=== PATIENT | male | born 1995 | race Caucasian/White ===

== ENCOUNTER 2017-03-18 15:34 | Emergency (ER) | payer SELFPAY ==
[~2017-03-18] VITALS: Ht 170.2 cm; Wt 60.3 kg
[2017-03-18 15:37] VITALS: BP 139/88; PULSE 106; RESP 16; TEMP 98.4; O2SAT 99
[2017-03-18 15:43] VITALS: BP 138/76; PULSE 114; RESP 18; O2SAT 96
[2017-03-18 16:03] VITALS: O2SAT 98
[2017-03-18] MEDS ORDERED: SODIUM CHLOR 0.9% 1000 ML INJ 1,000 ML IV SCH (16:04)
[2017-03-18] MEDS ORDERED: MORPHINE SULFATE 4 MG/ML INJ IV PUSH ONE (16:15)
[2017-03-18] MEDS ORDERED: ONDANSETRON HCL 4 MG/2 ML VIAL IVP ONE (16:15)
[2017-03-18] MEDS ORDERED: FAMOTIDINE 20 MG/2 ML VIAL IV PUSH ONE (16:15)
[2017-03-18] MEDS ORDERED: SODIUM CHLORIDE 0.9% FLUSH 10 ML FLUSH IV FLUSH PRN (16:15)
[2017-03-18 16:17] LABS: AUTOMATED NEUTROPHIL # 7.7 TH/MM3 (1.8-7.7); BASOPHIL # 0.2 TH/MM3 (0-0.2); BASOPHIL % 1.7 % (0.0-2.0); EOSINOPHIL # 0.3 TH/MM3 (0-0.4); EOSINOPHIL % 2.6 % (0.0-4.0); HEMATOCRIT 48.8 % (39.0-51.0); HEMO FLAGS DIFF FINAL; LYMPH % 19.7 % (9.0-44.0); LYMPHOCYTE # 2.1 TH/MM3 (1.0-4.8); MEAN CELL VOLUME 86.2 FL (80.0-100.0); MEAN CORPUSCULAR HGB CONC 33.6 % (32.0-36.0); PLATELET COUNT 202 TH/MM3 (150-450); RED BLOOD COUNT 5.66 MIL/MM3 (4.50-5.90); RED CELL DISTRIBUTION WIDTH 12.3 % (11.6-17.2); WHITE BLOOD COUNT 10.8 TH/MM3 (4.0-11.0)
--- NOTE | 2017-03-18 16:29 | PD ---
HPI Chief Complaint: GI Complaint Time Seen by Provider: 15:56 Travel History International Travel<30 days: No Contact w/Intl Traveler<30days: No Traveled to known affect area: No History of Present Illness HPI Patient is a 21 year old male who comes in complaining of abdominal pain and bloody stool. He says this morning he had a bowel movement and noticed some blood when he wiped himself and some blood in the toilet. He says the pain in his abdomen started shortly after that. He says the pain is in the middle of his abdomen. He denies nausea or vomiting. He denies fever or chills. He has not been on antibiotics recently. He denies any recent travel. [facility] Past Medical History Medical History: Denies Significant Hx Hx Anticoagulant Therapy: No Diabetes: No Diminished Hearing: No Immunizations Current: Yes (UTD) Seizures: Yes (FEBRILE) Tetanus Vaccination: < 5 Years Influenza Vaccination: No Past Surgical History Other Surgery: Yes (SINUS) Social History Alcohol Use: Yes (RARE) Tobacco Use: No Substance Use: No Allergies-Medications (Allergen,Severity, Reaction): Coded Allergies: No Known Allergies (Verified , 03/18/17) Reported Meds & Prescriptions Reported Meds & Active Scripts Active No Active Prescriptions or Reported Medications Review of Systems Except as stated in HPI: all other systems reviewed are Neg General / Constitutional: No: Fever, Chills HENT: No: Headaches, Lightheadedness Cardiovascular: No: Chest Pain or Discomfort Respiratory: No: Shortness of Breath Gastrointestinal: Positive: Abdominal Pain, Hematochezia, No: Nausea, Vomiting , Diarrhea, Constipation Genitourinary: No: Urgency, Frequency, Dysuria Musculoskeletal: No: Edema Skin: No Rash, No Change in Pigmentation Neurologic: No: Weakness, Dizziness Physical Exam Narrative GENERAL: Awake and alert, in no acute distress. SKIN: Focused skin assessment warm/dry. HEAD: Atraumatic. Normocephalic. EYES: Pupils equal and round. No scleral icterus. No injection or drainage. ENT: Mucous membranes pink and moist. NECK: Trachea midline. No JVD. CARDIOVASCULAR: Regular rate and rhythm. No murmur appreciated. RESPIRATORY: No accessory muscle use. Clear to auscultation. Breath sounds equal bilaterally. GASTROINTESTINAL: Abdomen soft, nondistended. Tender to palpation of the epigastric and periumbilical area. No guarding, no rebound. RECTAL: Performed in the presence of a nurse. No hemorrhoid or fissure. Brown stool, no occult blood. MUSCULOSKELETAL: No obvious deformities. No clubbing. No cyanosis. No edema. NEUROLOGICAL: Awake and alert. No obvious cranial nerve deficits. Motor grossly within normal limits. Normal speech. PSYCHIATRIC: Appropriate mood and affect; insight and judgment normal. Data Data Last Documented VS Vital Signs Date Time Temp Pulse Resp B/P Pulse Ox O2 Delivery O2 Flow Rate FiO2 03/18/17 17:34 100 18 124/74 98 Room Air 03/18/17 15:37 98.4 Orders Basic Metabolic Panel (Bmp) (03/18/17 16:04) Complete Blood Count With Diff (03/18/17 16:04) Lipase (03/18/17 16:04) Lactic Acid (03/18/17 16:04) Prothrombin Time / Inr (Pt) (03/18/17 16:04) Act Partial Throm Time (Ptt) (03/18/17 16:04) Urinalysis - C+S If Indicated (03/18/17 16:04) Ua Includes Microscopic (03/18/17 16:04) Ct Abd/Pel W Iv Contrast(Rout) (03/18/17 16:04) Iv Access Insert/Monitor (03/18/17 16:04) Ecg Monitoring (03/18/17 16:04) Oximetry (03/18/17 16:04) Morphine Inj (Morphine Inj) (03/18/17 16:15) Ondansetron Inj (Zofran Inj) (03/18/17 16:15) Sodium Chlor 0.9% 1000 Ml Inj (Ns 1000 M (03/18/17 16:04) Sodium Chloride 0.9% Flush (Ns Flush) (03/18/17 16:15) Famotidine Inj (Pepcid Inj) (03/18/17 16:15) Hepatic Functional Panel (03/18/17 16:04) Iohexol 350 Inj (Omnipaque 350 Inj) (03/18/17 17:07) Labs Laboratory Tests Test 03/18/17 03/18/17 03/18/17 16:00 16:10 17:30 White Blood Count 10.8 TH/MM3 Red Blood Count 5.66 MIL/MM3 Hemoglobin 16.4 GM/DL Hematocrit 48.8 % Mean Corpuscular Volume 86.2 FL Mean Corpuscular Hemoglobin 29.0 PG Mean Corpuscular Hemoglobin 33.6 % Concent Red Cell Distribution Width 12.3 % Platelet Count 202 TH/MM3 Mean Platelet Volume 8.8 FL Neutrophils (%) (Auto) 71.0 % Lymphocytes (%) (Auto) 19.7 % Monocytes (%) (Auto) 5.0 % Eosinophils (%) (Auto) 2.6 % Basophils (%) (Auto) 1.7 % Neutrophils # (Auto) 7.7 TH/MM3 Lymphocytes # (Auto) 2.1 TH/MM3 Monocytes # (Auto) 0.5 TH/MM3 Eosinophils # (Auto) 0.3 TH/MM3 Basophils # (Auto) 0.2 TH/MM3 CBC Comment DIFF FINAL Differential Comment Prothrombin Time 11.0 SEC Prothromb Time International 1.0 RATIO Ratio Activated Partial 25.0 SEC Thromboplast Time Sodium Level 144 MEQ/L Potassium Level 4.0 MEQ/L Chloride Level 106 MEQ/L Carbon Dioxide Level 28.7 MEQ/L Anion Gap 9 MEQ/L Blood Urea Nitrogen 13 MG/DL Creatinine 0.95 MG/DL Estimat Glomerular Filtration 98 ML/MIN Rate Random Glucose 111 MG/DL Calcium Level 9.1 MG/DL Total Bilirubin 0.3 MG/DL Direct Bilirubin 0.1 MG/DL Indirect Bilirubin 0.2 MG/DL Aspartate Amino Transf 23 U/L (AST/SGOT) Alanine Aminotransferase 34 U/L (ALT/SGPT) Alkaline Phosphatase 58 U/L Total Protein 7.8 GM/DL Albumin 4.1 GM/DL Lipase 172 U/L Lactic Acid Level 1.1 mmol/L Urine Collection Type CLEAN CATCH Urine Color YELLOW Urine Turbidity CLEAR Urine pH 6.0 Urine Specific [place] GREATER THAN 1.035 Urine Protein NEG mg/dL Urine Glucose (UA) NEG mg/dL Urine Ketones NEG mg/dL Urine Occult Blood TRACE Urine Nitrite NEG Urine Bilirubin NEG Urine Leukocyte Esterase NEG Urine RBC 0-3 /hpf Microscopic Urinalysis Comment CULT NOT INDICATED MDM Medical Decision Making Medical Screen Exam Complete: Yes Emergency Medical Condition: Yes Medical Record Reviewed: Yes Differential Diagnosis Colitis versus diverticulitis versus appendicitis versus peptic ulcer disease Narrative Course Patient is a 21-year-old male who comes in complaining of abdominal pain and blood in his stool. Exam shows some mild epigastric tenderness. Stool is negative for occult blood. IV established, labs sent. Labs show no acute abnormalities. Hemoglobin is 16. CT abdomen and pelvis is performed shows no acute abnormalities. Patient given IV fluids, morphine, Zofran. He reports feeling better. I discussed with him the results. I advised needs to follow-up with gastroenterology for further testing. He is not currently bleeding and has no signs of anemia, therefore I feel he is safe for discharge at this time. He is advised to return at any time for any worsening symptoms. Mandatory referral placed for gastroenterology. [facility] Point of Care Internal Pos. & Neg. Controls: Passed Fecal Specimen Occult Blood: Negative Diagnosis Primary Impression: Abdominal pain Qualified Code: R10.13 - Epigastric pain Additional Impression: Blood in stool Patient Instructions: Abdominal Pain (ED), General Instructions Additional Instructions: Drink plenty of fluids. Eat a bland diet. Follow up with Gastroenterology. Return to the ED as needed for any worsening symptoms. Scripts No Active Prescriptions or Reported Meds Disposition: 01 DISCHARGE HOME Condition: Stable Catherine May MD Mar 18, 2017 16:29
[2017-03-18 16:30] LABS: BICARBONATE 28.7 MEQ/L (21.0-32.0)
[2017-03-18 16:34] LABS: INDIRECT BILIRUBIN 0.2 MG/DL (0.0-0.8); TOTAL BILIRUBIN ADULT 0.3 MG/DL (0.2-1.0)
[2017-03-18] MEDS ORDERED: IOHEXOL 350 MG/ML 10 ML VIAL (for RAD DIAG) IV ONE (17:07)
[2017-03-18 17:34] VITALS: BP 124/74; PULSE 100; RESP 18; O2SAT 98
--- NOTE | 2017-03-18 17:36 | RADHPO ---
EXAM DATE/TIME: 03/18/2017 16:56 [place] COMPARISON: No previous studies available for comparison. INDICATIONS : Bloody stool with lower abdominal pain. IV CONTRAST: 90 cc Omnipaque 350 (iohexol) IV ORAL CONTRAST: No oral contrast ingested. RADIATION DOSE: 5.93 CTDIvol (mGy) MEDICAL HISTORY : None SURGICAL HISTORY : None. ENCOUNTER: Initial ACUITY: 1 day PAIN SCALE: 3/10 LOCATION: lower quadrant TECHNIQUE: Volumetric scanning of the abdomen and pelvis was performed. Using automated exposure control and ad justment of the mA and/or kV according to patient size, radiation dose was kept as low as reasonably achievable to obtain optimal diagnostic quality images. FINDINGS: LOWER LUNGS: The visualized lower lungs are clear. LIVER: Homogeneous density without lesion. There is no dilation of the biliary tree. No calcified gallston es. SPLEEN: Normal size without lesion. PANCREAS: Within normal limits. KIDNEYS: Normal in size and shape. There is no mass, stone or hydronephrosis. ADRENAL GLANDS: Within normal limits. VASCULAR: There is no aortic aneurysm. BOWEL/MESENTERY: The stomach, small bowel, and colon demonstrate no acute abnormality. There is no free intraperitone al air or fluid. ABDOMINAL WALL: Within normal limits. RETROPERITONEUM: There is no lymphadenopathy. BLADDER: No wall thickening or mass. REPRODUCTIVE: Within normal limits. INGUINAL: There is no lymphadenopathy or hernia. MUSCULOSKELETAL: Within normal limits for patient age. CONCLUSION: Normal examination. Nikhil Kidd MD on March 18, 2017 at 17:32 Board Certified Radiologist. This report was verified electronically.
[2017-03-18 17:43] LABS: BLOOD, URINE TRACE (NEG); GLUCOSE,URINE NEG (NEG); KETONE, URINE NEG (NEG); NITRITE,URINE NEG (NEG)
[2017-03-18 17:47] LABS: COMMENT (UR) CULT NOT INDICATED; CULTURE IF INDICATED CULT NOT INDICATED; METHOD OF COLLECTION CLEAN CATCH; RBC, URINE 0-3 /hpf (0-3); URINE COLOR YELLOW (YELLW/STRAW)
[2017-03-18 18:39] VITALS: BP 106/78
== END 2017-03-18 18:39 | disposition home or self-care (01) ==
LOC: PHED 15:34
DX: R10.13 Epigastric pain (principal); K92.1 Melena
CPT/HCPCS: 74177; 80048; 80076; 81001; 83605; 83690; 85025; 85610; 85730; 96361; 96374; 96375; 99285; J2270; J2405; J7030; Q9967

== ENCOUNTER 2017-11-18 09:38 | Emergency (ER) | payer OTHER ==
[~2017-11-18] VITALS: Ht 172.7 cm; Wt 60.2 kg
[2017-11-18 09:41] VITALS: BP 132/87; PULSE 81; RESP 16; TEMP 98.3; O2SAT 99
[2017-11-18] MEDS ORDERED: CLINDAMYCIN 150 MG CAP PO ONE (10:00)
[2017-11-18] MEDS ORDERED: DEXAMETHASONE SOD PHOS 20 MG/5 ML VIAL IM ONE (10:00)
--- NOTE | 2017-11-18 10:03 | PD ---
HPI Chief Complaint: Oral / Dental Pain or Problem Time Seen by Provider: 09:51 Travel History International Travel<30 days: No Contact w/Intl Traveler<30days: No Traveled to known affect area: No History of Present Illness HPI Patient comes to emergency department complaining of possible dental abscess that began approximately a week ago. Patient reports he is trying to contact the dentist however started having some swelling that he noticed yesterday. Patient reports he has been trying to brush his teeth and use mouthwash for symptomatic relief. Patient reports taking an Advil last night seemed to help some. Patient reports he is feeling a slight pressure over his left upper maxilla. Patient denies any making symptoms worse. Denies any fevers or radiation of pain. Denies difficulty swallowing, chest pain, neck pain, or fevers. Patient reports this tooth broke a long time ago and has not had it repaired. PFSH Past Medical History Hx Anticoagulant Therapy: No Diabetes: No Diminished Hearing: No Immunizations Current: Yes (UTD) Seizures: Yes (FEBRILE) Tetanus Vaccination: < 5 Years Influenza Vaccination: No Past Surgical History Other Surgery: Yes (SINUS) Social History Alcohol Use: Yes (RARE) Tobacco Use: No Substance Use: No Allergies-Medications (Allergen,Severity, Reaction): Coded Allergies: No Known Allergies (Verified Allergy, Unknown, 11/18/17) Reported Meds & Prescriptions Reported Meds & Active Scripts Active Naprosyn (Naproxen) 500 Mg Tab 500 Mg PO Q12HR PRN Clindamycin (Clindamycin HCl) 150 Mg Cap 2 Cap PO Q6H 10 Days Review of Systems Except as stated in HPI: all other systems reviewed are Neg Physical Exam Narrative GENERAL: Well-developed, well nourished, in no acute distress, and non-ill appearing. SKIN: Focused skin assessment warm and dry. HEAD: Atraumatic. Normocephalic. EYES: Pupils equal and round. EOMI. No scleral icterus. No injection or drainage. ENT: No nasal bleeding or discharge. Mucous membranes pink and moist. Poor dentition with no visible or palpable abscess. Mild soft tissue swelling noted of the left cheek. Floor the mouth, submandibular, and submental are all soft palpation. No cervical lymphadenopathy. Posterior pharynx nonerythematous without exudate. Uvula is midline. Patient is swallowing own saliva and speaking in full sentences without difficulty. NECK: Trachea midline. Supple. No nuclear rigidity. RESPIRATORY: No accessory muscle use. No respiratory distress. MUSCULOSKELETAL: No obvious deformities. No clubbing. No cyanosis. No edema. Full range of motion. NEUROLOGICAL: Awake and alert. No obvious cranial nerve deficits. Motor grossly within normal limits. Normal speech. PSYCHIATRIC: Appropriate mood and affect; insight and judgment normal. Data Data Last Documented VS Vital Signs Date Time Temp Pulse Resp B/P (MAP) Pulse Ox O2 Delivery O2 Flow Rate FiO2 11/18/17 09:41 98.3 81 16 132/87 (102) 99 Orders Orders Dexamethasone Inj (Decadron Inj) (11/18/17 10:00) Clindamycin (Cleocin) (11/18/17 10:00) Clindamycin Inj (Cleocin Inj) (11/18/17 10:15) Ed Discharge Order (11/18/17 10:16) Clindamycin Inj (Cleocin Inj) (11/18/17 10:30) [facility] Medical Decision Making Medical Screen Exam Complete: Yes Emergency Medical Condition: Yes Differential Diagnosis Dental abscess, dental infection, dental areas, dentalgia Narrative Course The patient presented with dental pain. There is no fever. There is no significant facial swelling or evidence of cellulitis. There is poor dentition but no evidence of drainable abscess at this time. There is no evidence of significant deep or invading abscess at this time. The patient will be placed on antibiotics and pain medication. The patient was instructed to follow up with a dentist. The patient was given the dental referral sheet. Warnings were discussed with the patient regarding worsening of infection. The patient is to return if pain worsens, develops progressive swelling or facial redness or fever. The patient agrees with plan. Patient in no obvious distress upon re-evaluation. Patient was asked if they wanted to speak to my attending, which the patient did not wish to do at this time. Any questions/concerns in reference to patient diagnosis/condition discussed and clarified prior to patient's discharge. Reinforced sheer importance of close follow up with patient's primary physician or primary care clinic and/or dentist. Instructed patient to return to ED immediately, if symptoms return/worsen. Patient showed understanding of above instructions. Further instructions and recommendations were detailed in discharge paperwork. Patient ambulated without difficulty out of ED at discharge. Diagnosis Primary Impression: Dental infection Referrals: [facility] Patient Instructions: Dental Abscess (GEN), Dental Caries (ED), General Instructions Additional Instructions: Follow-up with your primary care physician and dentist as soon as possible. Rinse mouth with warm salt water gargles. Take all medication as prescribed. Return to the emergency department if symptoms get worse. Med/Other Pt SpecificInfo: Prescription(s) given Scripts Naproxen (Naprosyn) 500 Mg Tab 500 MG PO Q12HR Y for PAIN SCALE 1 TO 10, #14 TAB 0 Refills Prov: Priti Horton MD 11/18/17 Clindamycin (Clindamycin) 150 Mg Cap 2 CAP PO Q6H for Infection for 10 Days, #80 CAP 0 Refills Prov: Priti Horton MD 11/18/17 Disposition: 01 DISCHARGE HOME Condition: Stable Juan Hutchins Nov 18, 2017 10:03
[2017-11-18] MEDS ORDERED: CLIN150C14 PO (10:04)
[2017-11-18] MEDS ORDERED: NAPR500 PO (10:04)
[2017-11-18] MEDS ORDERED: CLINDAMYCIN PHOS 300 MG/2 ML VIAL IM ONE (10:15)
[2017-11-18] MEDS ORDERED: CLINDAMYCIN PHOS 600 MG/4 ML VIAL IM ONE (10:30)
== END 2017-11-18 10:58 | disposition home or self-care (01) ==
LOC: PHEFT 09:38
DX: K04.7 Periapical abscess without sinus (principal)
CPT/HCPCS: 96372; 99283; J1100

== ENCOUNTER 2018-09-28 23:24 | Observation (INO) ==
[2018-09-28] MEDS ORDERED: Sod Chloride 0.9% Inj 1,000 ML IV.SIG ONE (23:46)
--- NOTE | 2018-09-28 23:52 | ED ---
HPI General Chief Complaint: Seizure Stated Complaint: Poss Seizure Time Seen by Provider: 09/28/18 23:33 Source: patient and family Mode of arrival: ambulatory Limitations: no limitations History of Present Illness HPI Narrative: Patient is a 23-year-old male who presents to the emergency room for evaluation of seizure. Patient's mother reports that patient was sitting in bed today when all of a sudden he had a seizure. Reports that the left side of his body was flailing, the seizure lasted for only a few minutes and resolved on its own. Reports that patient was responsive after his seizure episode but was confused. Patient does have history of seizures in the past, reports that he has history of [place] seizures when he was a little boy. Mom reports the patient was on seizure medications until the age of 53 years old and then stopped as he did not have any seizures. Patient reports that for the past 2-3 years, he has been having seizures on and off. Patient's last seizure was 2 weeks ago. Patient has not been on any seizure medications as he did not tell his mother he was having seizures. Patient reports that he does not have a primary care doctor, reports that he does not see a neurologist. 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 MD complaint: Reports seizure Related Data Home Medications Medication Instructions Recorded Confirmed No Known Home Medications 09/28/18 09/28/18 Allergies Allergy/AdvReac Type Severity Reaction Status Date / Time No Known Allergies Allergy Verified 09/28/18 23:48 Review of Systems ROS: all other systems reviewed are negative [facility] Medical History Medical History History of Asperger's syndrome (Acute) History of seizures (Acute) Surgical History Surgical History History of placement of ear tubes (Acute) Social History Social History Substance History: No History of Abuse Smoking Status: Never smoker How Often Do You Have a Drink Containing Alcohol: Never Recent Travel in [place] within the Last 8 Weeks: No Recent Out of Country Travel within the Last 8 Weeks: No Immunization History Tetanus Immunization: >5 Years Exam Narrative Exam Narrative: GENERAL: NAD SKIN: Focused skin assessment warm/dry. HEAD: Atraumatic. Normocephalic. EYES: Pupils equal and round. No scleral icterus. No injection or drainage. ENT: No nasal bleeding or discharge. Mucous membranes pink and moist. NECK: Trachea midline. No JVD. CARDIOVASCULAR: Regular rate and rhythm. No murmur appreciated. RESPIRATORY: No accessory muscle use. Clear to auscultation. Breath sounds equal bilaterally. GASTROINTESTINAL: Abdomen soft, non-tender, nondistended. Hepatic and splenic margins not palpable. MUSCULOSKELETAL: No obvious deformities. No clubbing. No cyanosis. No edema. NEUROLOGICAL: Awake and alert. No obvious cranial nerve deficits. Motor grossly within normal limits. Normal speech. PSYCHIATRIC: Appropriate mood and affect; insight and judgment normal. Course Reevaluation(s) Reevaluation #1: was called to bedside as patient had a seizure. 2 mg of ativan was ordered for patient, seizure lasted for about 30 seconds and resolved on it's own. he was not postictal after he had his seizure Time: 00:46 Reevaluation #2: was called back into room as patient had another seizure episode, when I walked into the room, he had resolution of his symptoms and was conversive Time: 01:14 Initial Documented Vital Signs Temperature 99.0 F 09/28/18 23:30 Pulse Rate 91 H 09/28/18 23:30 Respiratory Rate 18 09/28/18 23:30 Blood Pressure 149/86 H 09/28/18 23:30 Pulse Oximetry 98 09/28/18 23:30 Last Documented Vital Signs Temperature 99.0 F 09/28/18 23:30 Pulse Rate 91 H 09/28/18 23:30 Respiratory Rate 18 09/28/18 23:30 Blood Pressure 149/86 H 09/28/18 23:30 Pulse Oximetry 98 09/28/18 23:30 Critical Care Time Critical Care Time: Yes Total Critical Care Time: 30 Attestation: Aggregate critical care time was 30 minutes. Time to perform other separately billable procedures was not included in the critical care time. My time did not include minutes spent treating any other patients simultaneously or on activities that did not directly contribute to the patient's treatment. The services I provided to this patient were to treat and/or prevent clinically significant deterioration that could result in: , decompensation, deterioration I provided critical care services requiring my management, as noted below: Chart data review, documentation time, medication orders and management, vital sign assessments/reviewing monitor data, ordering and reviewing lab tests, ordering and interpreting/reviewing x-rays and diagnostic studies, care of the patient and discussion of the patient with the admitting physicians. Medical Decision Making MDM Narrative Medical decision making narrative: During the course of the patients emergency department visit, the patients history, examination, and differential diagnosis were reviewed with the patient. The patient was placed on a cardiac rehab nurse with oximetry and frequent blood pressure monitoring. The patient had an IV access obtained and blood work sent for analysis. The patient was initially provided Keppra 500mg Case reviewed with Dr. Sanders, requests that patient be admitted to the hospital, request an MRI with and without contrast in the morning. Request EEG. Request an FRANSISCO as well as an RPR and a urine drug screen to be obtained. Will start patient on Keppra 500 mg Radiology studies were reviewed and remarkable for: Ct of head: neg noncontrast ct case reviewed with Dr. Jay who accepts pt to service Medical Screen Exam Complete: Yes Emergency Medical Condition: Yes Lab Data Result diagrams: 09/29/18 00:20 09/29/18 00:20 Lab Results 09/29/18 09/29/18 09/29/18 Range/Units 00:15 00:20 00:20 CBC w Diff Auto diff final WBC 8.8 (4.0-11.0) th/mm3 RBC 5.22 (4.50-5.90) mil/mm3 Hgb 15.3 (13.0-17.0) gm/dL Hct 45.6 (39.0-51.0) % MCV 87.4 (80.0-100.0) fL MCH 29.4 (27.0-34.0) pg MCHC 33.6 (32.0-36.0) % RDW 11.9 (11.6-17.2) % Plt Count 209 (150-450) th/mm3 MPV 8.5 (7.0-11.0) fL Neut % (Auto) 67.5 (16.0-70.0) % Lymph % (Auto) 23.6 (9.0-44.0) % [place] % (Auto) 7.3 (0.0-8.0) % Eos % (Auto) 1.0 (0.0-4.0) % Baso % (Auto) 0.6 (0.0-2.0) % Neut # (Auto) 5.9 (1.8-7.7) th/mm3 Lymph # (Auto) 2.1 (1.0-4.8) th/mm3 [place] # (Auto) 0.6 (0.0-0.9) th/mm3 Eos # (Auto) 0.1 (0.0-0.4) th/mm3 Baso # (Auto) 0.1 (0.0-0.2) th/mm3 WBC Differential . Differential Comment . Sodium 138 (136-145) meq/L Potassium 3.6 (3.5-5.1) meq/L Chloride 103 (98-107) meq/L Carbon Dioxide 26.3 (21.0-32.0) meq/L Anion Gap 9 (5-15) meq/L BUN 13 (7-18) mg/dL Creatinine 0.95 (0.60-1.30) mg/dL Estimated GFR Greater than 89 (>89) mL/min Random Glucose 95 (74-106) mg/dL Calcium 8.6 (8.5-10.1) mg/dL Magnesium 2.3 (1.5-2.5) mg/dL TSH 1.940 (0.358-3.740) uIU/mL Urine Opiates Screen Neg (Neg) Ur Barbiturates Screen Neg (Neg) Ur Amphetamines Screen Neg (Neg) U Benzodiazepines Scrn Neg (Neg) Urine Cocaine Screen Neg (Neg) U Cannabinoids Screen Neg (Neg) Serum Alcohol Less than 3 (0-5) mg/dL Imaging Data Radiologist's impression: Head CT 09/28/18 23:46 CONCLUSION: Negative noncontrast head CT. . Discharge Plan Discharge Disposition Patient Disposition: ED Admit(ED Internal Use Only) Discharge Condition Condition: Stable Discharge Order Discharge Orders: ED Use Only Admit Order (Routine); Ordered 09/29/18 Ordered By: Argelia Robbins Discharge Details Diagnosis: Seizure disorder Physicians Team ED Provider: Argelia Robbins Primary Care Provider: Primary Care Physici,Lo Rxs /Orders / Referrals /Forms Prescriptions: No Action No Known Home Medications RF: 0 Status ED Status: Pending Admission
--- NOTE | 2018-09-29 00:12 | CT ---
EXAM DATE: 09/29/2018 12:08 AM EST AGE/SEX: 23 years / Male INDICATIONS: Seizure. CLINICAL DATA: This is the patient's initial encounter. Patient reports that signs and symptoms have been present for 1 day and indicates a pain score of 0/10. MEDICAL/SURGICAL HISTORY: Seizures. None. RADIATION DOSE: 51.51 CTDI (mGy) COMPARISON: No prior exams available for comparison. TECHNIQUE: CT of the head without contrast. Using automated exposure control and adjustment of the mA and/or kV according to patient size, radiation dose was kept as low as reasonably achievable to ob tain optimal diagnostic quality images. DICOM format image data is available electronically for revi ew and comparison. FINDINGS: Cerebrum: The ventricles are normal for age. No evidence of midline shift, mass lesion, hemorrhage or acute infarction. No extraaxial fluid collections are seen. Posterior Fossa: The cerebellum and brainstem are intact. The 4th ventricle is midline. The cerebe llopontine angle is unremarkable. Extracranial: The visualized portion of the orbits is intact. Skull: The calvaria is intact. No evidence of skull fracture. CONCLUSION: Negative noncontrast head CT. . Electronically signed by: Nikhil Kidd MD Board Certified Radiologist 09/29/2018 12:11 AM EST
[2018-09-29] MEDS ORDERED: levETIRAcetam 500 MG Tablet PO ONE (00:17)
[2018-09-29 00:35] LABS: Baso # (Auto) 0.1 th/mm3 (0.0-0.2); Baso % (Auto) 0.6 % (0.0-2.0); Eos # (Auto) 0.1 th/mm3 (0.0-0.4); Hematocrit 45.6 % (39.0-51.0); Hemoglobin 15.3 gm/dL (13.0-17.0); Lymph # (Auto) 2.1 th/mm3 (1.0-4.8); Lymph % (Auto) 23.6 % (9.0-44.0); Mean Corpuscular HGB Conc 33.6 % (32.0-36.0); Mean Corpuscular Hemoglobin 29.4 pg (27.0-34.0); Mean Corpuscular Volume 87.4 fL (80.0-100.0); Mean Platelet Volume 8.5 fL (7.0-11.0); Mono # (Auto) 0.6 th/mm3 (0.0-0.9); Mono % (Auto) 7.3 % (0.0-8.0); Neut # (Auto) 5.9 th/mm3 (1.8-7.7); Neut % (Auto) 67.5 % (16.0-70.0); Platelet Count 209 th/mm3 (150-450); Red Blood Count 5.22 mil/mm3 (4.50-5.90); Red Cell Distribution Width 11.9 % (11.6-17.2); White Blood Count 8.8 th/mm3 (4.0-11.0)
[2018-09-29 00:42] LABS: Amphetamine Screen,Urine Neg (Neg); Barbiturate Screen,Urine Neg (Neg)
[2018-09-29 00:43] LABS: Cannabinoid Screen,Urine Neg (Neg); Cocaine Screen,Urine Neg (Neg)
[2018-09-29 00:46] LABS: Chloride 103 meq/L (98-107); Potassium 3.6 meq/L (3.5-5.1); Sodium 138 meq/L (136-145)
[2018-09-29 00:47] LABS: Opiate Screen,Urine Neg (Neg)
[2018-09-29 00:48] LABS: Calcium 8.6 mg/dL (8.5-10.1)
[2018-09-29 00:49] LABS: Anion Gap 9 meq/L (5-15); Blood Urea Nitrogen 13 mg/dL (7-18); Carbon Dioxide 26.3 meq/L (21.0-32.0); Glucose,Random 95 mg/dL (74-106); Magnesium 2.3 mg/dL (1.5-2.5)
[2018-09-29 00:52] LABS: Glomerular Filtration Rate Greater Than 89 mL/min (>89)
[2018-09-29] MEDS ORDERED: Bisacodyl 10 MG Supp RECTAL PRN (01:13)
[2018-09-29] MEDS ORDERED: Acetaminophen 325 MG Tablet PO PRN (01:13)
[2018-09-29] MEDS ORDERED: Gadobutrol PF 2 MMOL/2 ML Vial (for RAD) IV.SIG ONE (01:17)
--- NOTE | 2018-09-29 02:10 | MR ---
EXAM DATE: 09/29/2018 2:06 AM EST AGE/SEX: 23 years / Male INDICATIONS: Seizures. CLINICAL DATA: This is the patient's subsequent encounter. Patient reports that signs and symptoms h ave been present for 1 day and indicates a pain score of 0/10. MEDICAL/SURGICAL HISTORY: Seizures. . Eustachian tubes. COMPARISON: No prior exams available for comparison. TECHNIQUE: Multiplanar, multisequence examination of the brain was performed without and with 6 ml Ga davist (gadobutrol) contrast as a single exam dose. FINDINGS: Cerebrum: The ventricles are normal for age. No evidence of midline shift, mass lesion, hemorrhage or acute infarction. No extraaxial fluid collections are seen. The pituitary gland and suprasellar cistern are normal in configuration. White Matter: No significant signal abnormalities are seen in the white matter. Posterior Fossa: The cerebellum and brainstem are intact. The 4th ventricle is midline. The cerebel lopontine angle is unremarkable. The cerebellar tonsils are normal in position. Diffusion Imaging: No focal areas of restricted diffusion are seen. No evidence of acute infarction . Extracranial: The visualized portions of the orbits and paranasal sinuses are unremarkable. Post Contrast: No abnormal areas of parenchymal or dural enhancement. No evidence of blood-brain ba rrier breakdown. CONCLUSION: Negative MRI examination of the brain. Electronically signed by: Nikhil Kidd MD Board Certified Radiologist 09/29/2018 2:09 AM EST
[2018-09-29] MEDS: Sod Chloride 0.9% Inj 1,000 ML IV.CONT SCH ×2 (02:12→14:32)
[2018-09-29] MEDS: Senna/Docusate Sodium 8.6/50 MG Tablet PO SCH ×2 (10:51→20:23)
--- NOTE | 2018-09-29 12:14 | P.HPIM ---
History of Present Illness Primary Care Physician: No Primary Care Physician History of Present Illness: 23-year-old male with a history of childhood seizures who presents following a witnessed (by his mother)seizure last night.. Patient does not himself remember the episode and his mother is not at bedside at this time. Reportedly he had right-sided shaking, no loss of bowel or bladder function. Patient says that he began having seizures again 3 years ago intermittently, however has not sought medical attention because he does not want to be forced to stop driving as he needs to drive for his work. Patient says he is otherwise been feeling all right recently. He does describe what sounds to be a pleural catch syndrome. Intermittent sharp chest pain over the past several months which eventually is relieved by a pop after deep breathing Review of Systems All other systems reviewed negative except as stated in HPI PMFSH - History History Provided By: Patient - Medical History Medical History: Medical History (Last Reviewed 09/29/18 @ 12:21 by Emerson Levi MD) History of Asperger's syndrome History of seizures - Surgical History Surgical History: Surgical History (Last Reviewed 09/29/18 @ 12:21 by Emerson Levi MD) History of placement of ear tubes - Family History Family History: Family History (Last Updated 09/29/18 @ 12:21 by Emerson Levi MD) Other Family history non-contributory - Tobacco History Second Hand Smoke Exposure: No Smoking Status: Never smoker - Alcohol History How Often Do You Have a Drink Containing Alcohol: Never - Substance Use History Substance History: No History of Abuse - Travel History Recent Travel in the [place] Within the Last 8 Weeks: No Recent Travel Out of the Country Within the Last 8 Weeks: No - Immunization History Tetanus Immunization: >5 Years Medications and Allergies Active Medications: Active Medications Acetaminophen (Tylenol) 650 mg PO Q4H PRN PRN Reason: Temp > 100.4 Al Hydroxide/Mg Hydroxide (Milk Of Magnesia Liq) 30 ml PO Q12H PRN PRN Reason: Mild Constipation Bisacodyl (Dulcolax Supp) 10 mg RECTAL DAILY PRN PRN Reason: SEVERE CONSITIPATION Sodium Chloride (Ns Inj) 1,000 mls @ 100 mls/hr IV.CONT .Q10H [facility] Last Admin: 09/29/18 02:12 Dose: 100 mls/hr Lactulose (Lactulose Liq) 30 ml PO DAILY PRN PRN Reason: SEVERE CONSITIPATION Lorazepam (Ativan Inj) 1 mg IV.PUSH Q5M PRN PRN Reason: SEIZURES Ondansetron HCl (Zofran Inj) 4 mg IV.PUSH Q6H PRN PRN Reason: NAUSEA OR VOMITING Senna/Docusate Sodium (Dai-Colace) 1 tab PO BID [facility] Last Admin: 09/29/18 10:51 Dose: Not Given Sennosides (Senokot) 17.2 mg PO Q12H PRN PRN Reason: Moderate Constipation Sodium Chloride (Ns Flush) 2 ml IV.FLUSH PRN PRN PRN Reason: FLUSH AFTER USING IV ACCESS Sodium Chloride (Ns Flush) 2 ml IV.FLUSH BID [facility] Last Admin: 09/29/18 10:51 Dose: Not Given Sodium Chloride (Ns Flush) 2 ml IV.FLUSH PRN PRN PRN Reason: FLUSH AFTER USING IV ACCESS Allergies Allergy/AdvReac Type Severity Reaction Status Date / Time No Known Allergies Allergy Verified 09/28/18 23:48 Home Medications Medication Instructions Recorded Confirmed Type No Known Home Medications 09/28/18 09/28/18 History Exam Vital signs: Vital Signs 09/28/18 23:30 09/29/18 02:45 09/29/18 03:00 Temperature 99.0 F 97.1 F L Pulse Rate 91 H 87 Respiratory Rate 18 18 Blood Pressure 149/86 H 118/74 Pulse Oximetry 98 99 98 09/29/18 08:00 Temperature 96.3 F L Pulse Rate 100 H Respiratory Rate 20 Blood Pressure 112/71 Pulse Oximetry 100 Intake & Output 09/28/18 09/29/18 09/29/18 18:59 06:59 18:59 Intake Total 1200 / 1200 Output Total 250 / 250 Balance 950 / 950 Weight 58.8 kg Intake: IV 1000 / 1000 NS Inj 1,000 ML @ Wide Open IV. 1000 / 1000 SIG BOLUS ONE Rx#:[id number] Oral Supplement 200 / 200 Output: Urine 250 / 250 Narrative: GENERAL: Patient sitting up in bed. Appears comfortable. SKIN: Warm and dry. HEAD: Atraumatic. Normocephalic. EYES: Pupils equal and round. No scleral icterus. No injection or drainage. ENT: No nasal bleeding or discharge. Mucous membranes pink and moist. NECK: Trachea midline. No JVD. CARDIOVASCULAR: Regular rate and rhythm. RESPIRATORY: No accessory muscle use. Clear to auscultation. Breath sounds equal bilaterally. GASTROINTESTINAL: Abdomen soft, non-tender, nondistended. Hepatic and splenic margins not palpable. MUSCULOSKELETAL: Extremities without clubbing, cyanosis, or edema. No obvious deformities. NEUROLOGICAL: Awake and alert. No obvious cranial nerve deficits. Patient says he cannot move his arms, however appears to have been using his cell phone without difficulty upon my entering the room. PSYCHIATRIC: Appropriate mood and affect; insight and judgment normal. Results - Labs CBC & Chem 7: 09/29/18 00:20 09/29/18 00:20 Labs: Short CBC 09/29/18 Range/Units 00:20 WBC 8.8 (4.0-11.0) th/mm3 Hgb 15.3 (13.0-17.0) gm/dL Hct 45.6 (39.0-51.0) % Plt Count 209 (150-450) th/mm3 BMP 09/29/18 00:20 Sodium 138 Potassium 3.6 Chloride 103 Carbon Dioxide 26.3 BUN 13 Creatinine 0.95 Calcium 8.6 - Imaging Impressions Head CT 09/28/18 23:46 CONCLUSION: Negative noncontrast head CT. . Head MRI 09/29/18 01:23 CONCLUSION: Negative MRI examination of the brain. Caprini VTE Risk Assessment Caprini VTE Risk Assessment: No/Low Risk (score <= 1) Caprini Risk Assessment Model: Point Value = 1 Point Value = 2 Point Value = 3 Point Value = 5 Age 41-60 Minor surgery BMI > 25 kg/m2 Swollen legs Varicose veins or History of unexplained or recurrent spontaneous Oral contraceptives or hormone replacement Sepsis (< 1 month) Serious lung disease, including pneumonia (< 1 month) Abnormal pulmonary function Acute myocardial infarction Congestive heart failure (< 1 month) History of inflammatory bowel disease Medical patient at bed rest Age 61-74 Arthroscopic surgery Major open surgery (> 45 min) Laparoscopic surgery (> 45 min) Malignancy Confined to bed (> 72 hours) Immobilizing plaster cast Central venous access Age >= 75 History of VTE Family history of VTE Factor V Leiden Prothrombin [id number] Lupus anticoagulant Anticardiolipin antibodies Elevated serum homocysteine Heparin-induced thrombocytopenia Other congenital or acquired thrombophilia Stroke (< 1 month) Elective arthroplasty Hip, pelvis, or leg fracture Acute spinal cord injury (< 1 month) Prophylaxis Regimen: Total Risk Factor Score Risk Level Prophylaxis Regimen 0-1 Low Early ambulation 2 Moderate Order ONE of the following: *Sequential Compression Device (SCD) *Heparin 5000 units SQ BID 3-4 Higher Order ONE of the following medications: *Heparin 5000 units SQ TID *Enoxaparin/Lovenox 40 mg SQ daily (WT < 150 kg, CrCl > 30 mL/min) *Enoxaparin/Lovenox 30 mg SQ daily (WT < 150 kg, CrCl > 10-29 mL/min) *Enoxaparin/Lovenox 30 mg SQ BID (WT < 150 kg, CrCl > 30 mL/min) AND/OR *Sequential Compression Device (SCD) 5 or more Highest Order ONE of the following medications: *Heparin 5000 units SQ TID (Preferred with Epidurals) *Enoxaparin/Lovenox 40 mg SQ daily (WT < 150 kg, CrCl > 30 mL/min) *Enoxaparin/Lovenox 30 mg SQ daily (WT < 150 kg, CrCl > 10-29 mL/min) *Enoxaparin/Lovenox 30 mg SQ BID (WT < 150 kg, CrCl > 30 mL/min) AND *Sequential Compression Device (SCD) Assessment and Plan - Plan //New-onset seizure //Bilateral upper extremity weakness. This appears to actually be recurrent, however this is the initial evaluation for this. Negative. Patient received Keppra in the ER. Follow-up neurology consultation. Neurochecks. -Seems as if this bilateral upper extremity weakness might be psychogenic. Will await neurology recommendations. Discussed Condition With: Patient, nurse. H&P: Quality - VTE Deep Vein Thrombosis/Pulmonary Embolism Present on Admission: No
--- NOTE | 2018-09-29 15:26 | MB ---
cc: Pankaj Morales MD, PhD DATE: 09/29/2018 REASON FOR CONSULTATION: Seizure. HISTORY OF PRESENT ILLNESS: This is a very pleasant 23-year-old male, who had a history of seizures in infancy up until age 3, treated with phenobarbital. He was weaned off of phenobarbital at that time, and had no recurrent seizure except for the past couple of years notices occasional intermittent seizures. Yesterday, he began twitching on the right side, became stiff and generalized. He lost consciousness. He had 3 or 4 of these episodes, came to the ER. He has been started on Keppra with no further episodes. PAST MEDICAL HISTORY: He has a history of seizures in the past and Asperger syndrome. CURRENT MEDICATIONS: 1. Keppra 500 mg 1-time dose. 2. Lactulose. 3. Dulcolax. 4. Zofran p.r.n. 5. Milk of magnesia. 6. Ativan p.r.n. seizure. PHYSICAL EXAMINATION: VITAL SIGNS: Blood pressure is 118/74, pulse is 87, respiratory rate is 18, and temperature 97 degrees. NEUROLOGIC: Higher cortical function, he is alert, oriented. Speech colon somewhat hesitant, but he is able to express himself. He follows commands. Cranial nerves are intact. Motor exam, he is generally weak, but no focal deficits. Reflexes are symmetric. IMAGING STUDIES: MRI of the brain is normal. CT of the brain is normal. LABORATORY DATA: White count 8800, hemoglobin 15.3, hematocrit 45.6%, platelet count 209,000. Sodium is 138, potassium 3.6, chloride 103, CO2 of 26, BUN is 13, creatinine 0.95, glucose 95, and calcium 8.6. TSH 1.94. Tox screen negative. FRANSISCO pending. RPR Pending. IMPRESSION: Recurrent seizures probably focal in onset with secondary generalization. RECOMMENDATION: We will obtain an EEG. Would recommend Keppra 1000 mg t.i.d. I have told the patient not to drive for at least 6 months of being seizure free. Pankaj Morales MD, PhD SHIVA/em , 02:49 PM , 02:55 PM
[2018-09-30 06:25] LABS: Baso # (Auto) 0.1 th/mm3 (0.0-0.2); Baso % (Auto) 0.9 % (0.0-2.0); Eos # (Auto) 0.2 th/mm3 (0.0-0.4); Eos % (Auto) 2.3 % (0.0-4.0); Hematocrit 44.3 % (39.0-51.0); Hemoglobin 14.8 gm/dL (13.0-17.0); Lymph # (Auto) 2.6 th/mm3 (1.0-4.8); Mean Corpuscular HGB Conc 33.4 % (32.0-36.0); Mean Corpuscular Hemoglobin 29.6 pg (27.0-34.0); Mean Corpuscular Volume 88.6 fL (80.0-100.0); Mean Platelet Volume 9.2 fL (7.0-11.0); Mono # (Auto) 0.8 th/mm3 (0.0-0.9); Mono % (Auto) 9.1 % (0.0-8.0); Neut # (Auto) 4.8 th/mm3 (1.8-7.7); Neut % (Auto) 56.7 % (16.0-70.0); Platelet Count 189 th/mm3 (150-450); Red Cell Distribution Width 11.9 % (11.6-17.2); White Blood Count 8.5 th/mm3 (4.0-11.0)
[2018-09-30 06:29] LABS: Chloride 107 meq/L (98-107); Potassium 3.3 meq/L (3.5-5.1); Sodium 141 meq/L (136-145)
[2018-09-30 06:33] LABS: Albumin 3.7 g/dL (3.4-5.0); Anion Gap 6 meq/L (5-15); Blood Urea Nitrogen 10 mg/dL (7-18); Calcium 8.4 mg/dL (8.5-10.1); Carbon Dioxide 27.6 meq/L (21.0-32.0); Glucose,Random 94 mg/dL (74-106)
[2018-09-30 06:36] LABS: Alanine Aminotransferase 119 U/L (12-78); Aspartate Aminotransferase 300 U/L (15-37)
[2018-09-30 06:37] LABS: Glomerular Filtration Rate Greater Than 89 mL/min (>89)
[2018-09-30 06:38] LABS: Total Protein 7.3 g/dL (6.4-8.2)
[2018-09-30 06:39] LABS: Alkaline Phosphatase 48 U/L (45-117)
[2018-09-30] MEDS: Senna/Docusate Sodium 8.6/50 MG Tablet PO SCH (08:40)
[2018-09-30 09:28] VITALS: RESP 20
[2018-09-30 09:52] LABS: RPR Screen For Reflex FTA Nonreactive (Nonreactive)
--- NOTE | 2018-09-30 11:11 | P.PNIM ---
Subjective Interval history: Patient says he is feeling right. Denies any chest pain or shortness of breath. Physical Exam Vital signs: Vital Signs 09/29/18 11:55 09/29/18 12:00 09/29/18 17:00 Temperature 97.6 F 96.3 F L Pulse Rate 80 85 Respiratory Rate 20 20 Blood Pressure 135/73 133/72 Pulse Oximetry 99 100 98 09/29/18 19:21 09/29/18 20:00 09/30/18 00:00 Temperature 98.7 F 97.0 F L Pulse Rate 103 H 96 H Respiratory Rate 18 18 Blood Pressure 121/67 119/69 Pulse Oximetry 98 95 97 09/30/18 08:00 Temperature 96.9 F L Pulse Rate 52 L Respiratory Rate 20 Blood Pressure 104/69 Pulse Oximetry 96 Intake & Output 09/29/18 09/30/18 09/30/18 18:59 06:59 18:59 Intake Total 1360 / 1360 1000 / 1000 Balance 1360 / 1360 1000 / 1000 Weight 59.6 kg Intake: IV 1000 / 1000 NS Inj 1,000 ML @ 100 mls/hr IV 1000 / 1000 .CONT .Q10H [facility] Rx#:[id number] Oral 360 / 360 Oral Supplement 1000 / 1000 Other: # Voids 3 1 Narrative: GENERAL: Patient lying in bed. Appears comfortable. Alert and oriented x4. SKIN: Warm and dry. HEAD: Normocephalic. EYES: No scleral icterus. No injection or drainage. NECK: Supple, trachea midline. No JVD. CARDIOVASCULAR: Regular rate and rhythm without murmurs, gallops, or rubs. RESPIRATORY: Breath sounds equal bilaterally. No accessory muscle use. GASTROINTESTINAL: Abdomen soft, non-tender, nondistended. MUSCULOSKELETAL: No cyanosis, or edema. BACK: Nontender without obvious deformity. No CVA tenderness. Results - Labs CBC & Chem 7: 09/30/18 05:10 09/30/18 05:10 Laboratory Results - last 24 hr 09/29/18 09/30/18 09/30/18 00:49 05:10 05:10 CBC w Diff Auto diff final WBC 8.5 RBC 5.00 Hgb 14.8 Hct 44.3 MCV 88.6 MCH 29.6 MCHC 33.4 RDW 11.9 Plt Count 189 MPV 9.2 Neut % (Auto) 56.7 Lymph % (Auto) 31.0 Bullock % (Auto) 9.1 H Eos % (Auto) 2.3 Baso % (Auto) 0.9 Neut # (Auto) 4.8 Lymph # (Auto) 2.6 Bullock # (Auto) 0.8 Eos # (Auto) 0.2 Baso # (Auto) 0.1 WBC Differential . Differential Comment . Sodium 141 Potassium 3.3 L Chloride 107 Carbon Dioxide 27.6 Anion Gap 6 BUN 10 Creatinine 0.77 Estimated GFR Greater than 89 Random Glucose 94 Calcium 8.4 L Total Bilirubin 0.5 AST 300 H ALT 119 H Alkaline Phosphatase 48 Total Protein 7.3 Albumin 3.7 RPR Nonreactive Assessment and Plan - Plan //New-onset seizure //Bilateral upper extremity weakness. This appears to actually be recurrent, however this is the initial evaluation for this. Negative. Patient received Keppra in the ER. Follow-up neurology consultation. Neurochecks. -Seems as if this bilateral upper extremity weakness might be psychogenic. Will await neurology recommendations. = Appreciate neurology assistance. Neurology started patient on Keppra 1000 mg twice daily. This will be continued. Follow-up with primary care, neurology as outpatient. EEG is pending. Patient is not to drive or operate heavy machinery, multiple children. Patient conveys understanding. Discussed Condition With: Patient, nurse. Discharge Planning: Discharge home today in good condition. Activity ad ifeanyi. Avoid driving or operating heavy machinery as above. Please see discharge medication reconciliation for medication list. Follow-up with neurology and primary care. EEG read is pending.
[2018-09-30 11:15] LABS: Anti-Nuclear Antibody Screen Neg (Neg)
[2018-09-30 12:48] VITALS: BP 122/86; PULSE 83; TEMP 98; O2SAT 98
--- NOTE | 2018-09-30 14:12 | MG ---
cc: Sierra Encinas MD DATE: 09/30/2018. EEG NUMBER: [id number] REFERRING PHYSICIAN: Andrew. ROOM: [id number]. SUBJECTIVE: Awake, drowsy, asleep with hyperventilation; good effort. Photic done. Apparently, the patient had an episode of arching his neck, shaking body; shaking right side and then shaking left side per radio tower technician. MRI is negative. This a 23-year-old male with a witnessed seizure by his mother with some confusion afterwards. History of Asperger's, petite mal seizures, chronic ear infections with tubes. MEDICATIONS: Currently on Keppra. DESCRIPTION OF RECORD: The patient has an alpha rhythm 9 Hz 20-60 microvolts; overall, symmetrical background. EKG seems sinus. A lot of eye movement artifact, but overall symmetrical; background well organized. Some attenuation when he becomes more drowsy. Hyperventilation performed; fairly good effort. Patient post-hyperventilation at 30 seconds and subsequently at epoch 101 he starts arching his back, shaking; not responding. The whole background is artifactual. As the patient recovers, background normalizes with normal alpha rhythm. Photic stimulation does have a normal driving response. During that portion where he is shaking due to the fact that it is predominantly artifact, I do not see anything significant to say that there is ongoing spike and wave discharges versus just artifact. IMPRESSION: Overall, normal-appearing electroencephalogram with a gross amount of artifact during the shaking event. Difficult to tell truly if there is any background, epileptiform features; looks more artifactual. Not epileptic in nature. Clinical correlation. MD TY Keller/trista/kuldip , 12:51 PM , 12:58 PM
== END 2018-09-30 12:54 | disposition home or self-care (01) ==
LOC: PHEDA 23:24 → PHED 23:24 → PH3 09-29 02:27
PROVIDERS: ADMIT Internal Medicine; ATTEND Internal Medicine
CPT/HCPCS: 70450; 70553; 80048; 80053; 80307; 83735; 84443; 85025; 86038; 86592; 90761; 90774; 95819; 96361; 96374; 99291; A9585; C8952; G0378; J2060; J7030